=== PATIENT | male | born 1970 | race Caucasian/White ===

== ENCOUNTER 2017-05-11 10:51 | Observation (INO) | payer OTHER ==
[~2017-05-11] VITALS: Ht 182.9 cm; Wt 81.0 kg
[~2017-05-11 10:51] MED LIST: ACET325S8 PO; LISI10 PO; [UNRECOGNIZED DRUG - CODE] PO
[2017-05-11 11:09] VITALS: BP 150/106; PULSE 87; RESP 16; TEMP 98.2; O2SAT 97
--- NOTE | 2017-05-11 11:56 | PD ---
HPI Chief Complaint: Laceration/Skin Injury Time Seen by Provider: 11:30 Travel History International Travel<30 days: Yes Contact w/Intl Traveler<30days: Yes Name of Country Traveled to: [place] Traveled to known affect area: No History of Present Illness HPI 46-year-old male presents to the emergency room for evaluation of laceration to his left medial forearm that occurred 12 hours ago. Patient accidentally stuck his arm through tempered glass last night. States he went to another emergency room but they were busy so he went home. Patient was drinking alcohol, 6 shots , prior to injury. Reports extreme pain with range motion of the hand. Reports mild paresthesias in the left distal hand. Unknown last tetanus. He also reports right dorsal foot pain but does not remember injuring it. Denies chronic medical conditions or daily medications. Last ate and drank at midnight. PFSH Past Medical History Hx Anticoagulant Therapy: Yes (ASA) Autoimmune Disease: No Blood Disorders: No Anxiety: No Depression: No Cancer: No Cardiovascular Problems: Yes Chemotherapy: Yes Diminished Hearing: No Endocrine: No Gastrointestinal Disorders: No GERD: No Glaucoma: No Genitourinary: No Hypertension: Yes Musculoskeletal: No Neurologic: No Psychiatric: Yes (adhd) Reproductive: No Respiratory: No Radiation Therapy: No Ulcer: No Past Surgical History AICD: No Arteriovenous Shunt: Yes Insulin Pump: No Joint Replacement: No Oral Surgery: Yes (reconstructive nose surgery by dr. merrill) Pacemaker: No Other Surgery: Yes (disckectomy [address] garcia) Social History Alcohol Use: Yes Tobacco Use: No Substance Use: No Allergies-Medications (Allergen,Severity, Reaction): Coded Allergies: No Known Allergies (Verified , 05/11/17) Reported Meds & Prescriptions Reported Meds & Active Scripts Active [place] (Hydrocodone-Acetaminophen) 5-325 mg Tab 1-2 Tab PO Q6H PRN Ibuprofen 800 Mg Tab 800 Mg PO Q8H PRN Reported Aspirin EC (Aspirin) 81 Mg Tabdr 81 Mg PO DAILY Lisinopril 10 Mg Tab 10 Mg PO DAILY Review of Systems Except as stated in HPI: all other systems reviewed are Neg Physical Exam Narrative GENERAL: Well-nourished, well-developed male in no acute distress. Afebrile. Ambulatory. SKIN: Focused skin assessment warm/dry. There is a large blood clot overlying a large laceration to the left medial forearm. HEAD: Normocephalic. EYES: No scleral icterus. No injection or drainage. NECK: Supple, trachea midline. No JVD or lymphadenopathy. CARDIOVASCULAR: Regular rate and rhythm without murmurs, gallops, or rubs. RESPIRATORY: Breath sounds equal bilaterally. No accessory muscle use. MUSCULOSKELETAL: No cyanosis. Extreme edema of the left upper extremity. Compartments hard. Intra-articular anterior compartment pressure is 47. 2+ radial pulse. Extreme pain with active and extension of the left hand. Minimal pain with flexion of the left hand. Less than 2 second capillary refill distally. Data Data Last Documented VS Vital Signs Date Time Temp Pulse Resp B/P Pulse Ox O2 Delivery O2 Flow Rate FiO2 05/11/17 14:26 102 20 139/69 94 05/11/17 11:09 98.2 Orders Basic Metabolic Panel (Bmp) (05/11/17 11:47) Complete Blood Count With Diff (05/11/17 11:47) Iv Access Insert/Monitor (05/11/17 11:47) Tetanus/Diphtheria Tox Adult (Tetanus/Di (05/11/17 12:00) Cefazolin 2 Gm Premix (Ancef 2 Gm Premix (05/11/17 12:00) Prothrombin Time / Inr (Pt) (05/11/17 11:47) Act Partial Throm Time (Ptt) (05/11/17 11:47) Forearm (2vws) (05/11/17 ) Foot, Complete ([id number]) (05/11/17 ) Insulin Human Regular Inj (Novolin R Inj (05/11/17 13:15) Dextrose 50% In Daniele (Vial) Inj (D50w (Vi (05/11/17 13:00) Ecg Monitoring (05/11/17 13:00) Albuterol Concentrated Neb (Albuterol Co (05/11/17 13:00) Sodium Chlor 0.9% 1000 Ml Inj (Ns 1000 M (05/11/17 14:30) Bupivacaine Pf 0.5% Inj (Marcaine Pf 0.5 (05/11/17 14:27) Admit Order (Ed Use Only) (05/11/17 14:38) Labs Laboratory Tests Test 05/11/17 11:55 White Blood Count 12.4 TH/MM3 Red Blood Count 5.57 MIL/MM3 Hemoglobin 17.5 GM/DL Hematocrit 52.0 % Mean Corpuscular Volume 93.2 FL Mean Corpuscular Hemoglobin 31.4 PG Mean Corpuscular Hemoglobin 33.7 % Concent Red Cell Distribution Width 14.4 % Platelet Count 260 TH/MM3 Mean Platelet Volume 8.2 FL Neutrophils (%) (Auto) 76.6 % Lymphocytes (%) (Auto) 15.2 % Monocytes (%) (Auto) 4.7 % Eosinophils (%) (Auto) 0.7 % Basophils (%) (Auto) 2.8 % Neutrophils # (Auto) 9.5 TH/MM3 Lymphocytes # (Auto) 1.9 TH/MM3 Monocytes # (Auto) 0.6 TH/MM3 Eosinophils # (Auto) 0.1 TH/MM3 Basophils # (Auto) 0.3 TH/MM3 CBC Comment DIFF FINAL Differential Comment Prothrombin Time 11.1 SEC Prothromb Time International 1.0 RATIO Ratio Activated Partial 27.6 SEC Thromboplast Time Sodium Level 144 MEQ/L Potassium Level 5.2 MEQ/L Chloride Level 109 MEQ/L Carbon Dioxide Level 31.0 MEQ/L Anion Gap 4 MEQ/L Blood Urea Nitrogen 14 MG/DL Creatinine 1.20 MG/DL Estimat Glomerular Filtration 66 ML/MIN Rate Random Glucose 80 MG/DL Calcium Level 8.8 MG/DL MDM Medical Decision Making Medical Screen Exam Complete: Yes Emergency Medical Condition: Yes Medical Record Reviewed: Yes Differential Diagnosis Compartment syndrome, laceration, tendon injury, neurovascular injury Narrative Course 46-year-old male presents to the emergency room for evaluation of a laceration to his left medial forearm. States it occurred 12 hours prior to arrival. Patient cut himself on tempered glass. Tetanus was updated. Patient is holding his hand in a flexed position. He has extreme pain with passive and active extension of the hand. 2+ radial pulses and less than 2 second capillary refill distally. There is extreme edema and ecchymosis of the right arm and a compartments are woody. Intra-articular anterior compartment pressure is 47. X-ray shows 3 glass foreign bodies. Vital signs stable. There is a large blood clot overlying the laceration and any range of motion of the hand causes blood to squirt several feet. I spoke to the hand surgeon [facility], Dr. Jacob, who recommends admitting patient for exploratory surgery. Patient was given 2 g of Ancef given 1 L of fluids. CBC shows mild leukocytosis , likely stress reaction. His potassium is slightly elevated as well but with slight hemolysis noted. He was given insulin, D50, and albuterol for hyperkalemia. Will remain nothing by mouth until surgical intervention. He understands and agrees to plan. Diagnosis Primary Impression: Compartment syndrome of left upper extremity Qualified Code: T79.A12A - Compartment syndrome of left upper extremity, initial encounter Scripts Hydrocodone-Acetaminophen ([place])5-325 mg Tab1-2 Tab PO Q6H PRN (PAIN) #40 TAB Ref 0 Prov:Tatyana Jacob MD 05/11/17 Ibuprofen 800 Mg Gsf620 Mg PO Q8H PRN (Pain/Inflammation) #60 TAB Ref 0 Prov:Tatyana Jacob MD 05/11/17 Condition: Stable Danni Sands May 11, 2017 11:56
[2017-05-11] MEDS ORDERED: TETANUS/DIPHTHERIA TOXOID ADULT 0.5 ML VIAL IM ONE (12:00)
[2017-05-11] MEDS ORDERED: ONDANSETRON HCL 4 MG/2 ML VIAL IV PUSH ONE (12:00)
[2017-05-11] MEDS ORDERED: PROPOFOL 200 MG/20 ML AMP IV ONE (12:00)
[2017-05-11] MEDS ORDERED: ceFAZolin 2 GM PREMIX 50 ML IV ONE (12:00)
[2017-05-11 12:01] LABS: AUTOMATED NEUTROPHIL # 9.5 TH/MM3 (1.8-7.7); BASOPHIL # 0.3 TH/MM3 (0-0.2); BASOPHIL % 2.8 % (0.0-2.0); EOSINOPHIL # 0.1 TH/MM3 (0-0.4); EOSINOPHIL % 0.7 % (0.0-4.0); HEMO FLAGS DIFF FINAL; LYMPH % 15.2 % (9.0-44.0); LYMPHOCYTE # 1.9 TH/MM3 (1.0-4.8); MEAN CELL VOLUME 93.2 FL (80.0-100.0); MEAN CORPUSCULAR HEMOGLOBIN 31.4 PG (27.0-34.0); MEAN CORPUSCULAR HGB CONC 33.7 % (32.0-36.0); MONO % 4.7 % (0.0-8.0); NEUT % 76.6 % (16.0-70.0); PLATELET COUNT 260 TH/MM3 (150-450); RED BLOOD COUNT 5.57 MIL/MM3 (4.50-5.90); RED CELL DISTRIBUTION WIDTH 14.4 % (11.6-17.2); WHITE BLOOD COUNT 12.4 TH/MM3 (4.0-11.0)
[2017-05-11 12:18] LABS: POTASSIUM 5.2 MEQ/L (3.5-5.1)
[2017-05-11 12:26] LABS: APTT (PATIENT) 27.6 SEC (24.3-30.1); PROTHROMBIN TIME - PATIENT 11.1 SEC (9.8-11.6)
[2017-05-11] MEDS ORDERED: DEXTROSE 50% IN WATER 50 ML VIAL(D50) IV PUSH ONE (13:00)
[2017-05-11] MEDS ORDERED: RESP: ALBUTEROL CONC 2.5 MG/0.5 ML NEB INH ONE (13:00)
--- NOTE | 2017-05-11 13:09 | RADRPT ---
EXAM DATE/TIME: 05/11/2017 12:45 [facility] COMPARISON: No previous studies available for comparison. INDICATIONS : Left anterior forearm laceration after going through glass. MEDICAL HISTORY : None. SURGICAL HISTORY : None. ENCOUNTER: Initial ACUITY: 1 day PAIN SCORE: 5/10 LOCATION: Left anterior forearm. FINDINGS: No definite fractures, or dislocations are identified. No definite lytic or sclerotic lesion is seen . Soft tissue swelling is identified with 3 small radiopaque foreign bodies in the soft tissues of th e patient's forearm probably pieces of glass. CONCLUSION: Probable pieces of glass in the patient's subcutaneous tissues. Whitney Duncan MD on May 11, 2017 at 13:07 Board Certified Radiologist. This report was verified electronically.
--- NOTE | 2017-05-11 13:10 | RADRPT ---
EXAM DATE/TIME: 05/11/2017 12:47 [facility] COMPARISON: No previous studies available for comparison. INDICATIONS : Right foot pain and swelling after twisting it today. MEDICAL HISTORY : None. SURGICAL HISTORY : None. ENCOUNTER: Initial ACUITY: 1 day PAIN SCORE: 4/10 LOCATION: Right foot. FINDINGS: No definite fractures, or dislocations are identified. No definite lytic or sclerotic lesion is seen . The joint spaces are well maintained. CONCLUSION: Unremarkable study. Whitney Duncan MD on May 11, 2017 at 13:08 Board Certified Radiologist. This report was verified electronically.
[2017-05-11] MEDS ORDERED: INSULIN HUMAN REGULAR 1,000 UNITS/10 ML VIAL IV PUSH ONE (13:15)
[2017-05-11 13:20] VITALS: BP 149/72; PULSE 94; RESP 20; O2SAT 98
[2017-05-11 14:26] VITALS: BP 139/69; PULSE 102; RESP 20; O2SAT 94
[2017-05-11] MEDS ORDERED: BUPIVACAINE HCL PF 0.5% 30 ML VIAL ONE (14:27)
[2017-05-11] MEDS ORDERED: SODIUM CHLOR 0.9% 1000 ML INJ 1,000 ML IV ONE (14:30)
[2017-05-11 14:55] VITALS: BP 128/82; PULSE 101; RESP 16; TEMP 98.2; O2SAT 98
[2017-05-11] MEDS ORDERED: ceFAZolin 2 GM PREMIX 50 ML IV SCH (15:00)
[2017-05-11] MEDS ORDERED: fentaNYL CITRATE 250 MCG/5 ML AMP ONE (15:21)
[2017-05-11] MEDS ORDERED: ASPI81TA11 PO (15:28)
[2017-05-11] MEDS ORDERED: LISI10TA3 PO (15:28)
--- NOTE | 2017-05-11 15:30 | MH ---
cc: MARGI TAO M.D. DATE OF ADMISSION: 05/11/2017 CHIEF COMPLAINT Injury to the left forearm. HISTORY OF PRESENT ILLNESS The patient is a 46-year-old male who presented to the emergency room after sustaining a laceration of his left forearm. This occurred approximately 12 hours ago. The patient did go to another emergency room but left and came here to [place], where it was noted that there was significant amount of swelling in his forearm as well as retained foreign bodies. Consultation is requested regarding evaluation and treatment of this and the patient after workup is going to be taken to surgery for cleaning out the wound and repairing. PAST MEDICAL HISTORY The patient is otherwise well. ALLERGIES None. MEDICATIONS None. REVIEW OF SYSTEMS 12 systems negative in detail except as related to the injury. SOCIAL HISTORY Noncontributory. PAST SURGICAL HISTORY Positive for arteriovenous shunt. He has had oral surgery and has had back surgery. PHYSICAL EXAMINATION GENERAL: The patient is lying comfortably in bed. HEENT: His extraocular muscles are intact. Pupils are equal, round and reactive to light. His mouth is clear. NECK: Neck is supple without masses. LUNGS: Clear. HEART: Regular rate and rhythm. LEFT UPPER EXTREMITY: Reveals swelling in the left forearm. There is an open wound where there is some bleeding. He is able to move his fingers without any difficulties, adequate circulation of the fingertips, two-point discrimination is within normal limits. There is a 3.5-cm curvilinear laceration on the volar aspect of the patient's left forearm. IMAGING STUDIES Review of the x-ray reveals several pieces of glass in the wound of unknown depth and no bony injuries noted. IMPRESSION The patient appears to have a laceration to his left forearm with retained foreign bodies. I do not believe that he does have a compartment syndrome. PLAN The patient will be taken to the operating room for exploration of the wound, removal of the foreign bodies and repair of the structures as indicated. The patient was made aware that he may need to have a fasciotomy and the incision is explained, going from his palm all the way to his elbow. The patient understands and accepts the risks and complications of surgery. MD CHI Root/JULIUS /3:03 PM /3:21 PM
[2017-05-11] MEDS ORDERED: DEXTROSE 50% IN WATER 50 ML SYRINGE ONE (15:59)
[2017-05-11] MEDS ORDERED: ceFAZolin INJ 1,000 MG VIAL ONE (17:06)
[2017-05-11] MEDS ORDERED: SODIUM CHLORIDE 0.9% INJ 100 ML ONE (17:07)
[2017-05-11] MEDS ORDERED: SODIUM CHLORIDE 0.9% FLUSH 5 ML FLUSH IVF PRN (17:30)
--- NOTE | 2017-05-11 17:30 | HHI.PR ---
Immediate Post Op Note Procedure Date: May 11, 2017 Pre Op Diagnosis: (1) Compartment syndrome of left upper extremity Post Op Diagnosis: (1) Open wound of left forearm Surgeon: Tatyana Jacob [employer] Web Developer(s): None Procedure: Exploration of left forearm with removal of foreign bodies and subcutaneous fascial release. Evacuation of hematoma Findings: The patient had 3 foreign bodies which were removed. Hematoma was present. Anesthesia: General Drains: None Tourniquet time (min at mmHg) 21 minutes at 220 mmHg Patient to: PACU Patient Condition: Good Date/Time of Procedure: SEE SURGICAL CARE RECORD Tatyana Jacob MD May 11, 2017 17:30
[2017-05-11] MEDS ORDERED: IBUP800T23 PO (17:32)
[2017-05-11] MEDS ORDERED: NORC5TAB PO (17:32)
[2017-05-11] MEDS ORDERED: MEPERIDINE HCL 25 MG/ML VIAL ONE (17:46)
[2017-05-11 18:00] VITALS: BP 145/87; PULSE 97; RESP 14; TEMP 97.7; O2SAT 97
[2017-05-11] MEDS ORDERED: DEXT 5%-NACL 0.45% 1000 ML INJ 1,000 ML IV SCH (18:00)
[2017-05-11] MEDS ORDERED: SODIUM CHLORIDE 0.9% FLUSH 5 ML FLUSH IVF SCH (21:00)
--- NOTE | 2017-05-12 12:50 | MP ---
cc: MARGI TAO M.D. DATE OF SURGERY 05/11/2017 PREOPERATIVE DIAGNOSIS Possible compartment syndrome of left forearm with open wound and foreign bodies. POSTOPERATIVE DIAGNOSES 1. Open wound of left forearm with foreign bodies. 2. Hematoma left forearm PROCEDURE 1. Exploration of left forearm with removal of foreign bodies, subcutaneous fasciotomies. 1. Evacuation of hematoma left forearm. ANESTHESIA General. SURGEON Dr. Tao INDICATION A 46-year-old male with injury to his left forearm. FINDINGS The three foreign bodies which had been identified on x-ray were removed. Clot was removed. There was an injury to his palmaris longus which was not repaired. A subcutaneous fasciotomy was undertaken. The muscle compartments were all soft at the end of the procedure. TOURNIQUET TIME 21 minutes. PROCEDURE The patient was seen preoperatively where the site and side were identified and marked. The patient was then taken to the operating room, placed in supine position. His identity was checked against the arm band and the consent form, site and side confirmed, time-out called prior to beginning the procedure. The left upper extremity was prepped with Hibiclens and draped in the usual sterile fashion. The area to be incised was outlined with a marking pen as a curvilinear incision extending the laceration which measured 3.5 cm. The arm was then elevated and the tourniquet inflated to 220 mmHg. The incision was then extended proximally and distally and the clot was noted. It was then removed with suction. Exploration was undertaken and the foreign bodies were found. This was facilitated with the use of a mini C-arm. The palmaris longus was found to be lacerated, was not repaired. Subcutaneous fasciotomies were carried out in order to relieve pressure on the muscles. There did not seem to be any significant compromise vascularly and the pressure was seen to be within normal limits at the end of the subcutaneous fasciotomies. A superficial vein was clamped and tied. Copious irrigation was undertaken and the wound was then closed with 4-0 nylon using both simple stitches and vertical mattress sutures. The repair was done after releasing the tourniquet and checking for bleeding. Once the wound was closed, dressing was applied using povidone-iodine ointment, Adaptic, Telfa, 4x4s, Sof-Rol, hand wrap and a palmar splint. Bupivacaine 0.5% plain was injected into all operated areas just prior to closure. The patient was then taken from the operating room to the recovery room in satisfactory condition having tolerated the procedure well. Postoperative instructions include keeping the arm elevated, keeping it clean and dry and returning in several days for followup. MD CHI Root/LOKESH /5:39 PM /12:48 PM
== END 2017-05-12 18:10 | disposition home or self-care (01) ==
LOC: PHEFT 10:51 → PHEDA 14:39
PROVIDERS: ADMIT Specialist; ATTEND Specialist
PROC: 0X990ZZ Drainage of Left Upper Arm, Open Approach (ICD-10-PCS; 2017-05-11)
PROC: 0JCH0ZZ Extirpation of Matter from Left Lower Arm Subcutaneous Tissue and Fascia, Open Approach (ICD-10-PCS; principal; 2017-05-11 15:49)
DX: S51.822A Laceration with foreign body of left forearm, initial encounter (principal); I10 Essential (primary) hypertension; M79.671 Pain in right foot; F90.9 Attention-deficit hyperactivity disorder, unspecified type; W25.XXXA Contact with sharp glass, initial encounter; Z79.82 Long term (current) use of aspirin; Z79.899 Other long term (current) drug therapy
CPT/HCPCS: 01922; 10140; 20103; 73090; 73630; 76000; 80048; 85025; 85610; 85730; 90471; 90714; 94664; 96365; 96375; 99285; G0378; J0690; J1815; J2175; J2405; J3010; J7030; J7611

== ENCOUNTER 2017-05-18 13:06 | Emergency (ER) | payer OTHER ==
[~2017-05-18 13:06] MED LIST changes: -ACET325S8 PO; +ASPI81TA11 PO; +IBUP800T23 PO; -LISI10 PO; +LISI10TA3 PO; +NORC5TAB PO; -[UNRECOGNIZED DRUG - CODE] PO
== END 2017-05-18 13:15 | disposition left against medical advice (07) ==
LOC: PHED 13:06
DX: S49.92XA Unspecified injury of left shoulder and upper arm, initial encounter (principal); X58.XXXA Exposure to other specified factors, initial encounter
CPT/HCPCS: 99281